=== PATIENT | female | born 1980 | race Caucasian/White ===

== ENCOUNTER 2017-07-19 19:51 | Emergency (ER) | payer MEDICAID, OTHER ==
[~2017-07-19] VITALS: Ht 180.3 cm; Wt 65.0 kg
[~2017-07-19 19:51] MED LIST: BUTA-281 PO; COM10T PO; CYCL-1 PO; DIPH-423 PO; HYDR-569 PO; HYDR1TAB69; IBUP-1051 PO; METO-292 PO; ONDA4TAB6 PO; ONDA8TAB9 PO; PROM25SU46 RC; SUMA25TA35 PO
[2017-07-19] MEDS ORDERED: METH-360 PO (21:08)
[2017-07-19] MEDS ORDERED: NAPR-56 PO (21:08)
[2017-07-19] MEDS ORDERED: diazepam 5mg tablet PO ONE (21:10)
[2017-07-19] MEDS ORDERED: ketorolac trometh inj. 60 MG/2 ML VIAL IM ONE (21:10)
[2017-07-19 21:20] VITALS: BP 118/47
== END 2017-07-19 21:21 | disposition home or self-care (01) ==
LOC: ER 19:52
DX: M54.5 Low back pain (principal); G43.909 Migraine, unspecified, not intractable, without status migrainosus; Z98.890 Other specified postprocedural states; Z98.51 Tubal ligation status; Z79.899 Other long term (current) drug therapy
CPT/HCPCS: 96372; 99283; J1885

== ENCOUNTER 2017-09-30 12:56 | Emergency (ER) | payer MEDICAID ==
[~2017-09-30] VITALS: Ht 180.3 cm; Wt 62.2 kg
[~2017-09-30 12:56] MED LIST changes: +METH-360 PO
[2017-09-30] MEDS ORDERED: normal saline 1000ML IV soln IVB ONE (13:10)
[2017-09-30] MEDS ORDERED: ondansetron/PF 4mg/2ml inj IV ONE (13:10)
[2017-09-30 13:20] LABS: URINE HCG NEGATIVE (NEG)
[2017-09-30 13:22] LABS: CLARITY,URINE CLOUDY (Clear); COLOR,URINE YELLOW (Yellow); GLUCOSE, URINE NEGATIVE (Neg); KETONES,URINE NEGATIVE (Neg); LEUKOCYTE ESTERASE ,URINE TRACE (Neg); NITRITES, URINE NEGATIVE (Neg); OCCULT BLOOD,URINE LARGE (Neg); PH,URINE 5.5 (4.8-8.0); PROTEIN,URINE TRACE mg/dl (Neg); UROBILINOGEN,URINE 0.2 E.U/dL (0.2-1.0)
[2017-09-30 13:26] LABS: UA COLLECTION TYPE CLN CATCH MIDSTREAM
[2017-09-30 13:28] LABS: AMORPHOUS URATES 1+; BACTERIA,URINE FEW /HPF (Neg); CAL OXALATE CRYSTALS 1+ /HPF (NEGATIVE); MUCUS STRANDS MODERATE /LPF (Neg); SQUAMOUS EPITHELIAL CELL,UR MANY /LPF (FEW); WBC,URINE 0-4 /HPF (0-4)
[2017-09-30 13:29] LABS: BASOPHILS % (AUTO) 0.4 % (0-1); EOSINOPHILS # (AUTO) 0.2 X10'3 (0-0.9); EOSINOPHILS % (AUTO) 2.8 % (0-6); HEMATOCRIT 37.9 % (35.0-45.0); HEMOGLOBIN 13.1 g/dl (12.0-16.0); LYMPHOCYTES # (AUTO) 1.4 X10'3 (1.1-4.8); LYMPHOCYTES % (AUTO) 23.5 % (21-51); MEAN CORPUSCULAR HEMOGLOBIN 29.5 PG (27.0-31.0); MEAN CORPUSCULAR HGB CONC 34.5 % (33.0-36.5); MEAN CORPUSCULAR VOLUME 85.6 FL (78-98); MEAN PLATELET VOLUME 8.6 FL (7.4-10.4); MONOCYTES # (AUTO) 0.8 X10'3 (0-0.9); MONOCYTES % (AUTO) 13.6 % (2-12); NEUTROPHILS # (AUTO) 3.5 X10'3 (1.8-7.7); NEUTROPHILS % (AUTO) 59.7 % (42-75); PLATELET COUNT 226 X10'3 (140-440); RED BLOOD COUNT 4.43 X10'6 (4.20-5.60); RED CELL DISTRIBUTION WIDTH 13.9 % (11.5-14.5); WHITE BLOOD COUNT 5.9 X10'3 (4.5-11.0)
[2017-09-30 13:51] LABS: ALANINE AMINOTRANSFERASE 20 U/L (12-78); ALBUMIN 3.3 G/DL (3.4-5.0); ALBUMIN/GLOBULIN RATIO 0.8 (1.1-1.5); ALKALINE PHOSPHATASE 66 IU/L (46-116); ANION GAP 10 (8-16); ASPARTATE AMINO TRANSFERASE 13 U/L (10-37); BILIRUBIN,TOTAL 0.3 MG/DL (0.1-1.0); BLOOD UREA NITROGEN 6 MG/DL (7-18); BUN/CREATININE RATIO 7.3 (6.6-38.0); CALCIUM 8.9 MG/DL (8.5-10.1); CHLORIDE 102 MMOL/L (99-107); CREATININE 0.82 MG/DL (0.40-0.90); GLUCOSE 105 MG/DL (70-104); LIPASE 105 U/L (73-393); POTASSIUM 3.3 MMOL/L (3.5-5.1); SODIUM 140 MMOL/L (135-145); TOTAL CARBON DIOXIDE 27.9 MMOL/L (24-32); TOTAL PROTEIN 7.5 G/DL (6.4-8.2); eGFR 78 ML/MIN
[2017-09-30] MEDS ORDERED: ONDA4TAB9 PO (14:08)
[2017-09-30 14:53] VITALS: BP 107/64
== END 2017-09-30 14:58 | disposition home or self-care (01) ==
LOC: ER 12:57
DX: K52.89 Other specified noninfective gastroenteritis and colitis (principal); G43.909 Migraine, unspecified, not intractable, without status migrainosus; Z98.890 Other specified postprocedural states; Z79.899 Other long term (current) drug therapy
CPT/HCPCS: 36415; 80053; 81001; 81025; 83690; 85025; 96361; 96374; 99284; J2405; J7030

== ENCOUNTER 2017-11-30 17:39 | Emergency (ER) | payer MEDICAID ==
[2017-12-01] MEDS ORDERED: CEPH500C5 PO (14:49)
[2017-12-01] MEDS ORDERED: TRAM50TA2 PO (14:49)
[2017-12-01] MEDS ORDERED: SULF1TAB49 PO (14:49)
== END 2017-11-30 18:42 | disposition left against medical advice (07) ==
LOC: ER 17:40
DX: Z00.8 Encounter for other general examination (principal); Z53.21 Procedure and treatment not carried out due to patient leaving prior to being seen by health care provider

== ENCOUNTER 2017-12-01 14:10 | Emergency (ER) | payer MEDICAID ==
[~2017-12-01] VITALS: Ht 180.3 cm; Wt 63.0 kg
[2017-12-01] MEDS ORDERED: SULF1TAB49 PO (14:49)
[2017-12-01] MEDS ORDERED: CEPH500C5 PO (14:49)
[2017-12-01] MEDS ORDERED: TRAM50TA2 PO (14:49)
[2017-12-01 15:18] VITALS: BP 136/76
== END 2017-12-01 15:20 | disposition home or self-care (01) ==
LOC: ER 14:11
DX: L02.31 Cutaneous abscess of buttock (principal); L03.317 Cellulitis of buttock; G43.909 Migraine, unspecified, not intractable, without status migrainosus; G89.29 Other chronic pain; F17.200 Nicotine dependence, unspecified, uncomplicated; Z90.49 Acquired absence of other specified parts of digestive tract; Z98.890 Other specified postprocedural states; Z79.899 Other long term (current) drug therapy
CPT/HCPCS: 99283

== ENCOUNTER 2018-01-28 15:46 | Emergency (ER) | payer MEDICAID ==
[~2018-01-28] VITALS: Ht 180.3 cm; Wt 67.7 kg
[~2018-01-28 15:46] MED LIST changes: +CEPH500C5 PO
[2018-01-28 15:59] VITALS: BP 111/66
[2018-01-28] MEDS ORDERED: CLIN150C2 PO (16:14)
== END 2018-01-28 16:24 | disposition home or self-care (01) ==
LOC: ER 15:47
DX: L02.31 Cutaneous abscess of buttock (principal); G43.909 Migraine, unspecified, not intractable, without status migrainosus; G89.29 Other chronic pain; Z90.49 Acquired absence of other specified parts of digestive tract; Z98.890 Other specified postprocedural states; Z90.89 Acquired absence of other organs; Z79.899 Other long term (current) drug therapy
CPT/HCPCS: 99283; A6266; A6449

== ENCOUNTER 2019-03-06 12:28 | Emergency (ER) | payer MEDICAID, OTHER ==
[~2019-03-06] VITALS: Ht 180.3 cm; Wt 63.0 kg
[~2019-03-06 12:28] MED LIST changes: -CEPH500C5 PO; +HYDR-4383 PO
[2019-03-06 12:40] VITALS: BP 98/58
[2019-03-06] MEDS ORDERED: ketorolac tromethamine 15mg/ml inj. IM ONE (14:05)
[2019-03-06] MEDS ORDERED: SULF1TAB49 PO (14:06)
[2019-03-06] MEDS ORDERED: CEPH-572 PO (14:06)
--- NOTE | 2019-03-06 14:29 | NUR ---
ortho order for sling done by agent contract clerk,pt denies any discomfort rgt arm supported with sling.d/c instruction given to the pt d/c med prescription for antibiotic given to the pt denies any concern or ques.
== END 2019-03-06 14:35 | disposition home or self-care (01) ==
LOC: ER 12:28
DX: M25.511 Pain in right shoulder (principal); L02.31 Cutaneous abscess of buttock; G89.29 Other chronic pain; Z90.49 Acquired absence of other specified parts of digestive tract; Z98.51 Tubal ligation status; Z98.890 Other specified postprocedural states; Z79.2 Long term (current) use of antibiotics; Z79.899 Other long term (current) drug therapy
CPT/HCPCS: 73030; 96372; 99283; J1885

== ENCOUNTER 2019-08-24 06:00 | Emergency (ER) | payer MEDICAID, OTHER ==
[~2019-08-24] VITALS: Ht 180.3 cm; Wt 63.6 kg
[2019-08-24 06:02] VITALS: BP 126/84
[2019-08-24] MEDS ORDERED: bupivacaine 0.25%/epinephrine 1:200,000 inj (contains preserv. MDV) IJ ONE (06:25)
[2019-08-24] MEDS ORDERED: tetanus & diphtheria toxoid (Td) vaccine 0.5ml IMVAC ONE (06:40)
[2019-08-24] MEDS ORDERED: CEPH250T PO (06:43)
[2019-08-24] MEDS ORDERED: IBUP-1984 PO (06:43)
[2019-08-24] MEDS ORDERED: TETanus/Pertussis (Acell)/Diphther VAC/PF (Tdap-Adult) 0.5ml syringe IMVAC ONE (07:00)
== END 2019-08-24 07:14 | disposition home or self-care (01) ==
LOC: ER 06:01
DX: S81.812A Laceration without foreign body, left lower leg, initial encounter (principal); K02.9 Dental caries, unspecified; G89.29 Other chronic pain; Z90.49 Acquired absence of other specified parts of digestive tract; Z98.51 Tubal ligation status; Z98.890 Other specified postprocedural states; Z79.2 Long term (current) use of antibiotics; Z79.899 Other long term (current) drug therapy; W45.8XXA Other foreign body or object entering through skin, initial encounter; Y93.89 Activity, other specified; Y92.89 Other specified places as the place of occurrence of the external cause; Y99.8 Other external cause status
CPT/HCPCS: 12002; 90471; 90715; 99283

== ENCOUNTER 2020-03-27 09:46 | Emergency (ER) | payer MEDICAID ==
[~2020-03-27] VITALS: Ht 180.3 cm; Wt 66.0 kg
[~2020-03-27 09:46] MED LIST changes: +CEPH250T PO
[2020-03-27 09:57] VITALS: BP 138/41
[2020-03-27] MEDS ORDERED: BUPIVAcaine/PF 2.5 mg/ml (0.25%) 30ml vial IJ ONE (10:50)
[2020-03-27] MEDS ORDERED: LIDOcaine 1% 30ml preserv. free vial IJ STA (10:50)
[2020-03-27] MEDS ORDERED: AMOX-117 PO (10:54)
--- NOTE | 2020-03-27 11:38 | NUR ---
Provider in room for dental block. Pt denies pain and is to f/u with dentist.
== END 2020-03-27 11:41 | disposition home or self-care (01) ==
LOC: ER 09:46
DX: K02.9 Dental caries, unspecified (principal); K08.89 Other specified disorders of teeth and supporting structures; G43.909 Migraine, unspecified, not intractable, without status migrainosus; G89.29 Other chronic pain; Z90.89 Acquired absence of other organs; Z98.51 Tubal ligation status; Z98.890 Other specified postprocedural states; Z79.2 Long term (current) use of antibiotics; Z79.899 Other long term (current) drug therapy
CPT/HCPCS: 64400; 99283; 99284

== ENCOUNTER 2020-04-08 18:34 | Emergency (ER) | payer MEDICAID ==
[~2020-04-08] VITALS: Ht 180.3 cm; Wt 63.6 kg
[2020-04-08] MEDS ORDERED: acetaminophen 325mg tablet PO ONE (20:05)
[2020-04-08] MEDS ORDERED: ketorolac trometh. 30mg/ml inj. IM ONE (20:05)
[2020-04-08] MEDS ORDERED: HYDROcodone/acetaminophen 10/325mg tab PO ONE (20:05)
[2020-04-08] MEDS ORDERED: AMOX500C2 PO (20:08)
[2020-04-08 20:21] VITALS: BP 161/90
== END 2020-04-08 20:20 | disposition home or self-care (01) ==
LOC: ER 18:34
DX: K08.89 Other specified disorders of teeth and supporting structures (principal); G43.909 Migraine, unspecified, not intractable, without status migrainosus; G89.29 Other chronic pain; Z90.49 Acquired absence of other specified parts of digestive tract; Z98.51 Tubal ligation status; Z98.890 Other specified postprocedural states; Z79.899 Other long term (current) drug therapy
CPT/HCPCS: 96372; 99283; J1885

== ENCOUNTER 2020-05-30 13:54 | Emergency (ER) | payer MEDICAID ==
[~2020-05-30] VITALS: Ht 180.3 cm; Wt 66.5 kg
[~2020-05-30 13:54] MED LIST changes: -PROM25SU46 RC; +PROM25SU9 RC
[2020-05-30 14:38] LABS: URINE HCG NEGATIVE (NEG)
[2020-05-30 14:39] LABS: CLARITY,URINE SLIGHTLY CLOUDY (Clear); COLOR,URINE STRAW (Yellow); GLUCOSE, URINE NEGATIVE (Neg); KETONES,URINE NEGATIVE (Neg); LEUKOCYTE ESTERASE ,URINE MODERATE (Neg); NITRITES, URINE POSITIVE (Neg); OCCULT BLOOD,URINE MODERATE (Neg); PROTEIN,URINE NEGATIVE (Neg)
[2020-05-30 14:40] LABS: UA COLLECTION TYPE CLN CATCH MIDSTREAM
[2020-05-30 14:47] LABS: BACTERIA,URINE 4+ /HPF (Neg); MUCUS STRANDS NONE SEEN /LPF (Neg); SQUAMOUS EPITHELIAL CELL,UR MODERATE /LPF (FEW); WBC CLUMPS,URINE FEW /HPF (NEGATIVE); WBC,URINE 20-30 /HPF (0-4)
[2020-05-30] MEDS ORDERED: normal saline 1000ML IV soln IVB ONE ×2 (15:00→16:20)
[2020-05-30] MEDS ORDERED: CefTRIAXone/D5W-Rocephin 1gm 50 ML IV ONE (15:00)
[2020-05-30] MEDS ORDERED: ketorolac tromethamine 15mg/ml inj. IV ONE (15:00)
[2020-05-30 15:17] LABS: BASOPHILS % (AUTO) 0.3 % (0-1); EOSINOPHILS % (AUTO) 0.3 % (0-6); HEMATOCRIT 33.3 % (35.0-45.0); HEMOGLOBIN 11.5 g/dl (12.0-16.0); LYMPHOCYTES # (AUTO) 1.2 X10'3 (1.1-4.8); LYMPHOCYTES % (AUTO) 16.3 % (21-51); MEAN CORPUSCULAR HEMOGLOBIN 29.3 PG (27.0-31.0); MEAN CORPUSCULAR HGB CONC 34.5 g/dL (33.0-36.5); MEAN CORPUSCULAR VOLUME 85.1 FL (78-98); MEAN PLATELET VOLUME 8.3 FL (7.4-10.4); MONOCYTES # (AUTO) 0.8 X10'3 (0-0.9); MONOCYTES % (AUTO) 10.8 % (2-12); NEUTROPHILS # (AUTO) 5.3 X10'3 (1.8-7.7); NEUTROPHILS % (AUTO) 72.3 % (42-75); PLATELET COUNT 209 X10'3 (140-440); RED BLOOD COUNT 3.92 X10'6 (4.20-5.60); RED CELL DISTRIBUTION WIDTH 13.9 % (11.5-14.5); WHITE BLOOD COUNT 7.4 X10'3 (4.5-11.0)
[2020-05-30 15:32] LABS: ALANINE AMINOTRANSFERASE 14 U/L (12-78); ALBUMIN 3.4 G/DL (3.4-5.0); ALBUMIN/GLOBULIN RATIO 0.9 (1.1-1.5); ALKALINE PHOSPHATASE 88 IU/L (46-116); ANION GAP 7 (8-16); ASPARTATE AMINO TRANSFERASE 13 U/L (10-37); BILIRUBIN,TOTAL 0.8 MG/DL (0.1-1.0); BLOOD UREA NITROGEN 4 MG/DL (7-18); BUN/CREATININE RATIO 5.5 (6.6-38.0); CALCIUM 8.3 MG/DL (8.5-10.1); CHLORIDE 101 MMOL/L (99-107); CREATININE 0.73 MG/DL (0.40-0.90); GLUCOSE 97 MG/DL (70-104); LIPASE 69 U/L (73-393); POTASSIUM 3.2 MMOL/L (3.5-5.1); SODIUM 136 MMOL/L (135-145); TOTAL CARBON DIOXIDE 28.2 MMOL/L (24-32); TOTAL PROTEIN 7.4 G/DL (6.4-8.2); eGFR 89 ML/MIN
[2020-05-30] MEDS ORDERED: potassium Cl 20 mEq SR tablet PO STA (16:13)
[2020-05-30] MEDS ORDERED: SULF1TAB49 PO (16:33)
[2020-05-30 17:06] VITALS: BP 104/54
--- NOTE | 2020-06-03 08:02 | NUR ---
Attempted to contact patient at listed number with no way to leave a voicemail due to patients number not accepting calls. I also attempted to contact patients next of kin at which i received the same message. Letter sent to listed address. Patient is to discontinue bactrim start Keflex 500 mg QID x7 days per Dr. Torito Cruz
== END 2020-05-30 17:07 | disposition home or self-care (01) ==
LOC: ER 13:55
DX: N10 Acute pyelonephritis (principal); G43.909 Migraine, unspecified, not intractable, without status migrainosus; G89.29 Other chronic pain; F17.200 Nicotine dependence, unspecified, uncomplicated; Z90.49 Acquired absence of other specified parts of digestive tract; Z98.890 Other specified postprocedural states; Z98.51 Tubal ligation status; Z79.899 Other long term (current) drug therapy
CPT/HCPCS: 36415; 74176; 80053; 81001; 81025; 83605; 83690; 84145; 85025; 87040; 87077; 87088; 87186; 96365; 96366; 96375; 99284; J0696; J1885; J7030

== ENCOUNTER 2021-01-08 15:42 | Emergency (ER) | payer MEDICAID, OTHER ==
[~2021-01-08] VITALS: Ht 154.9 cm; Wt 65.9 kg
[~2021-01-08 15:42] MED LIST changes: -CEPH250T PO; +LIDOcaine 1% W/epiNEPHrine 1:100,000 20ml vial ONE
[2021-01-08 15:49] VITALS: BP 120/77
[2021-01-08] MEDS ORDERED: LIDOcaine 1% W/epiNEPHrine 1:200,000 10ml vial IJ ONE (16:00)
[2021-01-08] MEDS ORDERED: oxyCODONE/APAP 5-325mg tablet PO ONE (16:00)
[2021-01-08] MEDS ORDERED: amox tr/potassium clavulanate 875/125mg TAB PO ONE (16:00)
[2021-01-08] MEDS ORDERED: AMOX-117 PO (17:35)
== END 2021-01-08 17:59 | disposition home or self-care (01) ==
LOC: ER 15:42
DX: S81.812A Laceration without foreign body, left lower leg, initial encounter (principal); F17.210 Nicotine dependence, cigarettes, uncomplicated; G43.909 Migraine, unspecified, not intractable, without status migrainosus; G89.29 Other chronic pain; Z90.49 Acquired absence of other specified parts of digestive tract; Z98.51 Tubal ligation status; Z79.899 Other long term (current) drug therapy; W54.0XXA Bitten by dog, initial encounter; Y93.89 Activity, other specified; Y92.89 Other specified places as the place of occurrence of the external cause; Y99.8 Other external cause status
CPT/HCPCS: 12004; 73590; 99283